=== PATIENT | male | born 1965 | race Caucasian/White ===

== ENCOUNTER 2024-10-26 10:47 | Emergency (ER) | payer BC ==
[~2024-10-26] VITALS: Ht 175.3 cm; Wt 72.1 kg
[~2024-10-26 10:47] MED LIST: APIX5TAB3 PO; LEVO50TA8 PO; LISI20TA28 PO; MULT-1085 PO; NOR5T PO; OMEP40CA21 PO; THIA50TA10 PO
[2024-10-26 10:56] VITALS: TEMP 97.2
[2024-10-26 14:16] VITALS: BP 103/69; PULSE 80; RESP 16; O2SAT 98
== END 2024-10-26 14:20 | disposition home or self-care (01) ==
LOC: ER 10:48
DX: S82.52XA Displaced fracture of medial malleolus of left tibia, initial encounter for closed fracture (principal); Z79.899 Other long term (current) drug therapy; X50.1XXA Overexertion from prolonged static or awkward postures, initial encounter; Y93.89 Activity, other specified; Y92.89 Other specified places as the place of occurrence of the external cause; Y99.8 Other external cause status
CPT/HCPCS: 73610; 99283; L4360